=== PATIENT | female | born 1940 | race African-American/Black ===

== ENCOUNTER 2017-05-16 19:23 | Emergency (ER) | payer OTHER, MEDICAID ==
[~2017-05-16] VITALS: Ht 162.6 cm; Wt 73.0 kg
[~2017-05-16 19:23] MED LIST: AMLO10TA80 PO; ASPI-1159 PO; ATOR20TA PO; CARI350T PO; CLON0.2T PO; HYDR-2412 PO; HYDR-519 PO; LOSA1TAB37 PO; METO-300 PO
[2017-05-16] MEDS ORDERED: HYDROCODONE/ACETAMINOPHEN 10/325MG TABLET PO ONE (23:45)
[2017-05-17 00:09] VITALS: BP 139/64
== END 2017-05-17 00:39 | disposition home or self-care (01) ==
LOC: ER 21:12
DX: M50.121 Cervical disc disorder at C4-C5 level with radiculopathy (principal); M50.122 Cervical disc disorder at C5-C6 level with radiculopathy; M50.123 Cervical disc disorder at C6-C7 level with radiculopathy; E78.00 Pure hypercholesterolemia, unspecified; G89.29 Other chronic pain; I10 Essential (primary) hypertension; Z79.82 Long term (current) use of aspirin; Z88.0 Allergy status to penicillin; Z88.6 Allergy status to analgesic agent
CPT/HCPCS: 70450; 72125; 99284

== ENCOUNTER 2019-01-29 10:32 | Inpatient (IN) | payer OTHER, MEDICAID ==
[~2019-01-29] VITALS: Ht 157.5 cm; Wt 68.9 kg
[~2019-01-29 10:32] MED LIST changes: -CARI350T PO; -HYDR-2412 PO; +HYDR-459 PO; -METO-300 PO; +METO-411 PO; +S350 PO
[2019-01-29 11:43] LABS: EOSINOPHILS % 5.2 % (0.0-5.0); HEMATOCRIT. 38.1 % (36.0-48.0); HEMOGLOBIN. 12.9 g/dL (12.0-16.0); LYMPHOCYTES % 29.7 % (20.0-50.0); MEAN CORPUSCULAR HEMOGLOBIN 31.9 pg (28.0-32.0); MONOCYTES % 12.2 % (2.0-8.0); NEUTROPHILS % 51.9 % (40.0-76.0); PLATELET 155 x1000/uL (130-400); RED BLOOD CELL COUNT 4.06 mill/uL (4.2-5.4); RED CELL DISTRIBUTION WIDTH 13.2 % (11.6-14.6)
[2019-01-29 11:50] LABS: CHLORIDE 109 mEq/L (98-107)
[2019-01-29] MEDS ORDERED: ASPIRIN 325MG EC TABLET PO ONE (12:15)
[2019-01-29 17:00] VITALS: BP 138/68
[2019-01-29 17:09] VITALS: BP 138/68
[2019-01-29 20:00] VITALS: BP 139/69
[2019-01-29] MEDS ORDERED: ACETAMINOPHEN 325MG TABLET PO PRN (22:00)
[2019-01-29] MEDS ORDERED: CLONIDINE 0.1MG TABLET PO PRN (22:00)
[2019-01-29] MEDS ORDERED: ONDANSETRON HCL 4MG/2ML INJ IV PRN (22:00)
[2019-01-29] MEDS ORDERED: IPRATROPIUM/ALBUTEROL 0.5-3(2.5)MG/3ML NEB INH PRN (22:00)
[2019-01-29] MEDS ORDERED: ENOXAPARIN 40MG/0.4ML SYR SUBCUT SCH (22:30)
[2019-01-29] MEDS ORDERED: POTASSIUM CHLORIDE 20MEQ TABLET SR PO NR (22:30)
[2019-01-29 23:40] LABS: CREATINE KINASE 114 IU/L (26-192)
[2019-01-29 23:42] LABS: CREATINE KINASE MB FRACTION 1.7 ng/mL (0.5-3.6)
[2019-01-30] VITALS: BP 115/70
[2019-01-30 01:41] LABS: *AMPHETAMINES SCREEN URINE NEGATIVE (NEGATIVE); *BARBITURATES SCREEN URINE NEGATIVE (NEGATIVE); *BENZODIAZEPINES SCREEN URINE NEGATIVE (NEGATIVE); *COCAINE SCREEN URINE NEGATIVE (NEGATIVE); METHADONE URINE SCREEN NEGATIVE (NEGATIVE); OPIATES URINE SCREEN NEGATIVE (NEGATIVE)
[2019-01-30 01:43] LABS: CANNABINOID URINE SCREEN PRESUMTIVE POSITIVE (NEGATIVE); PHENCYCLIDINE URINE SCREEN NEGATIVE (NEGATIVE)
[2019-01-30 04:00] VITALS: BP 128/69
[2019-01-30 07:48] LABS: BASOPHILS % 0.5 % (0.0-2.0); EOSINOPHILS % 5.4 % (0.0-5.0); HEMATOCRIT. 37.6 % (36.0-48.0); HEMOGLOBIN. 12.6 g/dL (12.0-16.0); LYMPHOCYTES % 42.4 % (20.0-50.0); MEAN CORPUSCULAR HEMOGLOBIN 31.5 pg (28.0-32.0); MEAN CORPUSCULAR VOLUME 94.1 fL (81.0-99.0); MEAN PLATELET VOLUME 9.9 fl (7.4-10.4); MONOCYTES % 14.8 % (2.0-8.0); NEUTROPHILS % 36.9 % (40.0-76.0); PLATELET 154 x1000/uL (130-400)
[2019-01-30 08:00] VITALS: BP 148/83
[2019-01-30 08:00] LABS: CHLORIDE 109 mEq/L (98-107)
[2019-01-30 08:13] LABS: CREATINE KINASE 107 IU/L (26-192); LDL CHOLESTEROL 90 mg/dL (5-100)
[2019-01-30 08:16] LABS: CREATINE KINASE MB FRACTION 1.4 ng/mL (0.5-3.6); HDL CHOLESTEROL 50 mg/dL (40-59)
[2019-01-30 08:17] LABS: T4 FREE 1.02 ng/dL (0.76-1.46)
[2019-01-30] MEDS ORDERED: ASPIRIN 81MG EC TABLET PO SCH (09:00)
[2019-01-30] MEDS ORDERED: REGADENOSON 0.4 MG/5 ML IV NR (11:15)
[2019-01-30] MEDS ORDERED: CLONIDINE 0.2MG TABLET PO PRN (11:30)
[2019-01-30] MEDS ORDERED: AMLODIPINE 2.5MG TABLET PO SCH ×2 (11:30→21:00)
[2019-01-30] MEDS ORDERED: CLONIDINE 0.1MG TABLET PO PRN (11:30)
[2019-01-30] MEDS ORDERED: LOSARTAN POTASSIUM 50 MG TABLET PO SCH (11:30)
[2019-01-30 12:00] VITALS: BP 144/77
[2019-01-30] MEDS ORDERED: REGADENOSON 0.4 MG/5 ML IV ONE (12:59)
[2019-01-30] MEDS: HYDROCODONE/ACETAMINOPHEN 5/325MG TABLET PO PRN ×2 (14:03→15:43)
[2019-01-30 16:00] VITALS: BP 129/68
[2019-01-30 16:18] VITALS: BP 144/77
[2019-01-30] MEDS ORDERED: ATORVASTATIN CALCIUM 20MG TABLET PO SCH (21:00)
== END 2019-01-30 17:45 | disposition home or self-care (01) | DRG 313 ==
LOC: ER 10:32 → EDBEDREQ 12:10 → 5WST 12:45 → EDBEDREQTM 12:47 → EDBEDREQ 12:47 → ENRESERV 16:00
PROVIDERS: ADMIT Internal Medicine; ATTEND Internal Medicine
DX: R07.9 Chest pain, unspecified (principal); E46 Unspecified protein-calorie malnutrition; E66.9 Obesity, unspecified; E78.00 Pure hypercholesterolemia, unspecified; E78.5 Hyperlipidemia, unspecified; E87.6 Hypokalemia; F12.90 Cannabis use, unspecified, uncomplicated; I10 Essential (primary) hypertension; M19.90 Unspecified osteoarthritis, unspecified site; Z68.27 Body mass index [BMI] 27.0-27.9, adult; Z88.0 Allergy status to penicillin; Z88.5 Allergy status to narcotic agent; Z79.82 Long term (current) use of aspirin
CPT/HCPCS: 36415; 71045; 78452; 80061; 80305; 82550; 82553; 83880; 84439; 84443; 84484; 87804; 93005; 93017; 93306; 93970; 99285; A9500; J1650; J2785